=== PATIENT | female | born 1975 | race Caucasian/White ===

== ENCOUNTER 2016-12-13 13:32 | Emergency (ER) | payer OTHER ==
[~2016-12-13] VITALS: Ht 162.6 cm; Wt 62.0 kg
[~2016-12-13 13:32] MED LIST: BENZ100 PO; IBUP-232 PO; NOVONP2 SQ; NOVORP2 SQ; TYLE3 PO; ZITH250T PO
[2016-12-13 14:19] VITALS: BP 122/90; PULSE 73; RESP 16; TEMP 98.7; O2SAT 99
[2016-12-13] MEDS ORDERED: MOTR200T4 PO (15:09)
[2016-12-13] MEDS ORDERED: NOVONP2 SQ (15:09)
[2016-12-13] MEDS ORDERED: CYCL1TAB29 PO (15:27)
[2016-12-13] MEDS ORDERED: NAPR500T PO (15:27)
[2016-12-13] MEDS ORDERED: KETOROLAC TROMETHAMINE 60 MG/2 ML (IM) VIAL IM ONE (15:30)
--- NOTE | 2016-12-13 15:30 | PD ---
HPI Chief Complaint: Injury Time Seen by Provider: 15:27 Travel History International Travel<30 days: No Contact w/Intl Traveler<30days: No Traveled to known affect area: No History of Present Illness HPI 41-year-old female with history of diabetes presents to the emergency department for evaluation of left shoulder pain for 5 days. 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 States that since then she has had some pain in the left shoulder with worsening pain in the left upper back and muscle spasms. States that she has applied ice and Biofreeze with minimal improvement of symptoms. She has not taken any medications so far. Denies any prior injury or trauma to her shoulder. Denies any numbness or tingling, weakness, chest pain or shortness of breath. Denies , last menstrual period 1 week ago. No other complaints. PFSH Past Medical History Diabetes: Yes (type ) Patient Takes Glucophage: No Diminished Hearing: No Neurologic: Yes (HX OF BRAIN TUMORS) Immunizations Current: Yes Tetanus Vaccination: < 5 Years Influenza Vaccination: No ?: Not LMP: 1 week ago : 2 Para: 0 Miscarriage: 2 : 0 Past Surgical History Abdominal Surgery: Yes (EX LAP) Appendectomy: Yes Other Surgery: Yes (EXPLORATORY LAP) Social History Alcohol Use: Yes Tobacco Use: Yes (/ PPD) Substance Use: No Allergies-Medications (Allergen,Severity, Reaction): Coded Allergies: No Known Allergies (Verified , 12/13/16) Reported Meds & Prescriptions Reported Meds & Active Scripts Active Naproxen 500 Mg Tab 500 Mg PO BID 7 Days Flexeril (Cyclobenzaprine HCl) 10 Mg Tab 10 Mg PO TID 5 Days Reported Motrin Ib (Ibuprofen) 200 Mg Tab 800 Mg PO ONCE PRN Novolin N Inj (Insulin Human NPH) 1,000 Unit/10 Ml Vial 15 Units SQ DAILY Review of Systems Except as stated in HPI: all other systems reviewed are Neg Physical Exam Narrative GENERAL: Well-nourished and well-developed pleasant patient in no acute distress who is nontoxic appearing. SKIN: Warm and dry. HEAD: Normocephalic and atraumatic. EYES: No injection, drainage, or hyphema noted. PERRLA. EOMI. ENT: No nasal drainage noted. Oropharynx is clear. NECK: Supple and the trachea is midline. CARDIOVASCULAR: Regular rate and rhythm. RESPIRATORY: Breath sounds are equal bilaterally with no accessory muscle use, wheezing, rhonchi, or crackles. MUSCULOSKELETAL: Decreased range of motion in the left shoulder secondary to pain however patient is able to lift her left arm up to 90. No obvious deformities, swelling, cyanosis, or ecchymosis is present throughout the upper and lower extremities. Patient has full range of motion without any signs of neurovascular compromise. BACK: Tenderness to palpation of left subscapular/thoracic paraspinal muscle region. Nontender without any obvious deformities, bony point tenderness, or crepitus noted throughout the thoracic and lumbar vertebrae. NEUROLOGICAL: Awake, alert, and oriented. Normal speech and gait. Cranial nerves are grossly intact. Data Data Last Documented VS Vital Signs Date Time Temp Pulse Resp B/P Pulse Ox O2 Delivery O2 Flow Rate FiO2 12/13/16 14:19 98.7 73 16 122/90 99 Orders Ketorolac Inj (Toradol Inj) (12/13/16 15:30) [facility] Medical Decision Making Medical Screen Exam Complete: Yes Emergency Medical Condition: Yes Differential Diagnosis Shoulder sprain versus ligamentous injury versus muscle spasm versus muscle strain Narrative Course 41-year-old female presents to the emergency department for evaluation of left shoulder pain and left upper back pain for 5 days. Patient is afebrile, vital signs are stable. No traumatic injury. This happened when the child was pulling on her arm. The patient's left upper extremity is neurovascularly intact. Patient is given Toradol 60 mg IM. She'll be discharged with prescriptions for naproxen and Flexeril. Discussed supportive care. Advised follow-up with her PCP. Patient verbalizes understanding and agreement with treatment plan. Diagnosis Primary Impression: Sprain of left shoulder Qualified Code: S43.402A - Sprain of left shoulder, unspecified shoulder sprain type, initial encounter Additional Impression: Spasm of thoracic back muscle Referrals: Primary Care Physician Patient Instructions: General Instructions, Muscle Spasm (ED), Shoulder Sprain (ED) Additional Instructions: Apply heating pad. Take medications as prescribed with food and a full glass of water. Do not take Flexeril with alcohol or while driving. Follow-up with your Primary Care Physician. Return to the ED for any acute worsening of symptoms. Med/Other Pt SpecificInfo: Prescription(s) given Scripts Naproxen 500 Mg [id number] Mg PO BID 7 Days Ref 0 Prov:Rishi Narayanan MD 12/13/16 Cyclobenzaprine (Flexeril)10 Mg Tab10 Mg PO TID 5 Days Ref 0 Prov:Rishi Narayanan MD 12/13/16 Disposition: 01 DISCHARGE HOME Condition: Stable Saritha Rodriguez Dec 13, 2016 15:30
== END 2016-12-13 15:41 | disposition home or self-care (01) ==
LOC: PHED 13:32 → PHEFT 15:41
DX: S43.402A Unspecified sprain of left shoulder joint, initial encounter (principal); M62.830 Muscle spasm of back; E11.9 Type 2 diabetes mellitus without complications; F17.200 Nicotine dependence, unspecified, uncomplicated; Z79.4 Long term (current) use of insulin; Z86.69 Personal history of other diseases of the nervous system and sense organs; X50.0XXA Overexertion from strenuous movement or load, initial encounter; Y93.F9 Activity, other caregiving
CPT/HCPCS: 96372; 99283; J1885

== ENCOUNTER 2017-08-17 12:21 | Emergency (ER) | payer SELFPAY ==
[~2017-08-17] VITALS: Ht 162.6 cm; Wt 60.0 kg
[~2017-08-17 12:21] MED LIST changes: -BENZ100 PO; +CYCL1TAB29 PO; -IBUP-232 PO; +MOTR200T4 PO; +NAPR500T PO; -NOVORP2 SQ; -TYLE3 PO; -ZITH250T PO
[2017-08-17 12:23] VITALS: BP 124/80; PULSE 101; RESP 20; TEMP 97.9; O2SAT 99
[2017-08-17] MEDS ORDERED: SODIUM CHLOR 0.9% 1000 ML INJ 1,000 ML IV ONE ×3 (12:45→14:30)
[2017-08-17] MEDS ORDERED: SODIUM CHLORIDE 0.9% FLUSH 10 ML FLUSH IVF PRN (12:45)
[2017-08-17 13:24] LABS: AUTOMATED NEUTROPHIL # 5.3 TH/MM3 (1.8-7.7); BASOPHIL # 0.1 TH/MM3 (0-0.2); EOSINOPHIL # 0.1 TH/MM3 (0-0.4); EOSINOPHIL % 1.1 % (0.0-4.0); HEMATOCRIT 43.3 % (35.0-46.0); HEMO FLAGS DIFF FINAL; LYMPH % 19.9 % (9.0-44.0); LYMPHOCYTE # 1.5 TH/MM3 (1.0-4.8); MEAN CELL VOLUME 92.1 FL (80.0-100.0); MEAN CORPUSCULAR HEMOGLOBIN 30.6 PG (27.0-34.0); MEAN CORPUSCULAR HGB CONC 33.2 % (32.0-36.0); MONO % 8.2 % (0.0-8.0); NEUT % 69.8 % (16.0-70.0); PLATELET COUNT 309 TH/MM3 (150-450); RED BLOOD COUNT 4.71 MIL/MM3 (4.00-5.30); RED CELL DISTRIBUTION WIDTH 13.6 % (11.6-17.2); WHITE BLOOD COUNT 7.6 TH/MM3 (4.0-11.0)
[2017-08-17 13:45] LABS: ALKALINE PHOSPHATASE 119 U/L (45-117); ALT (GPT) 33 U/L (10-53); ANION GAP 8 MEQ/L (5-15); AST (GOT) 18 U/L (15-37); BETA-HYDROXYBUTYRATE 0.48 MMOL/L (0.00-0.39); BLOOD UREA NITROGEN 15 MG/DL (7-18); CHLORIDE 102 MEQ/L (98-107); GLOMERULAR FILTRATION RATE 83 ML/MIN (>89); POTASSIUM 4.4 MEQ/L (3.5-5.1); SODIUM (NA) 134 MEQ/L (136-145); TOTAL BILIRUBIN ADULT 0.6 MG/DL (0.2-1.0)
[2017-08-17 14:27] VITALS: BP 122/74; PULSE 53; RESP 16; O2SAT 99
[2017-08-17] MEDS ORDERED: METOCLOPRAMIDE HCL 10 MG/2 ML VIAL IV PUSH ONE (14:30)
--- NOTE | 2017-08-17 14:40 | PD ---
HPI Chief Complaint: Diabetic Time Seen by Provider: 12:39 Travel History International Travel<30 days: No Contact w/Intl Traveler<30days: No Traveled to known affect area: No History of Present Illness HPI Patient is a 42-year-old female who presents to emergency room with complaints of hyperglycemia. Patient reports that she is a type II diabetic, she has been having polydipsia as well as polyuria, reports that she has been feeling dizzy and has been feeling nauseous. Patient reports that she thinks that her blood sugar is high. She does take insulin, reports that she has been lax in checking her blood sugars, reports that she has not been eating well overall. Patient denies any chest pain or shortness of breath. Patient denies any fevers or chills. Patient with no other complaints. PFSH Past Medical History Diabetes: Yes Patient Takes Glucophage: No Diminished Hearing: No Neurologic: Yes (HX OF BRAIN TUMORS) Immunizations Current: Yes ?: Not : 2 Para: 0 Miscarriage: 2 : 0 Past Surgical History Abdominal Surgery: Yes (EX LAP) Appendectomy: Yes Other Surgery: Yes (EXPLORATORY LAP) Social History Alcohol Use: Yes (beer weekly ) Tobacco Use: Yes (01/01 PPD) Substance Use: No Allergies-Medications (Allergen,Severity, Reaction): Coded Allergies: No Known Allergies (Verified , 12/13/16) Reported Meds & Prescriptions Reported Meds & Active Scripts Active Naproxen 500 Mg Tab 500 Mg PO BID 7 Days Reported Motrin Ib (Ibuprofen) 200 Mg Tab 800 Mg PO ONCE PRN Novolin N Inj (Insulin Human NPH) 1,000 Unit/10 Ml Vial 15 Units SQ DAILY Review of Systems General / Constitutional: No: Fever Eyes: No: Visual changes HENT: Positive: Lightheadedness, No: Headaches Cardiovascular: No: Chest Pain or Discomfort Respiratory: No: Shortness of Breath Gastrointestinal: No: Abdominal Pain Genitourinary: No: Dysuria Musculoskeletal: No: Pain Skin: No Rash Neurologic: Positive: Dizziness, No: Weakness Psychiatric: No: Depression Endocrine: Positive: Polyuria, Polydipsia Hematologic/Lymphatic: No: Easy Bruising Physical Exam Narrative GENERAL: NAD SKIN: Focused skin assessment warm/dry. HEAD: Atraumatic. Normocephalic. EYES: Pupils equal and round. No scleral icterus. No injection or drainage. ENT: No nasal bleeding or discharge. Mucous membranes pink and moist. NECK: Trachea midline. No JVD. CARDIOVASCULAR: Regular rate and rhythm. No murmur appreciated. RESPIRATORY: No accessory muscle use. Clear to auscultation. Breath sounds equal bilaterally. GASTROINTESTINAL: Abdomen soft, non-tender, nondistended. Hepatic and splenic margins not palpable. MUSCULOSKELETAL: No obvious deformities. No clubbing. No cyanosis. No edema. NEUROLOGICAL: Awake and alert. No obvious cranial nerve deficits. Motor grossly within normal limits. Normal speech. PSYCHIATRIC: Appropriate mood and affect; insight and judgment normal. Data Data Last Documented VS Vital Signs Date Time Temp Pulse Resp B/P (MAP) Pulse Ox O2 Delivery O2 Flow Rate FiO2 08/17/17 14:27 53 16 122/74 (90) 99 Room Air 08/17/17 12:23 97.9 Orders Orders Complete Blood Count With Diff (08/17/17 12:45) Comprehensive Metabolic Panel (08/17/17 12:45) Beta Hydroxybutyrate (Acetone) (08/17/17 12:45) Urinalysis - C+S If Indicated (08/17/17 12:45) Blood Glucose (08/17/17 12:45) Blood Glucose (08/17/17 13:15) Ecg Monitoring (08/17/17 12:45) Iv Access Insert/Monitor (08/17/17 12:45) Oximetry (08/17/17 12:45) NPO (08/17/17 12:45) Sodium Chlor 0.9% 1000 Ml Inj (Ns 1000 M (08/17/17 12:45) Sodium Chlor 0.9% 1000 Ml Inj (Ns 1000 M (08/17/17 13:15) Sodium Chloride 0.9% Flush (Ns Flush) (08/17/17 12:45) Ed Urine Pregnancytest Poc (08/17/17 12:45) Blood Glucose (08/17/17 12:45) Metoclopramide Inj (Reglan Inj) (08/17/17 14:30) Sodium Chlor 0.9% 1000 Ml Inj (Ns 1000 M (08/17/17 14:30) Insulin Human Regular Inj (Novolin R Inj (08/17/17 14:45) Blood Glucose (08/17/17 14:40) Blood Glucose (08/17/17 15:40) Labs Laboratory Tests Test 08/17/17 13:00 08/17/17 13:48 White Blood Count 7.6 TH/MM3 Red Blood Count 4.71 MIL/MM3 Hemoglobin 14.4 GM/DL Hematocrit 43.3 % Mean Corpuscular Volume 92.1 FL Mean Corpuscular Hemoglobin 30.6 PG Mean Corpuscular Hemoglobin Concent 33.2 % Red Cell Distribution Width 13.6 % Platelet Count 309 TH/MM3 Mean Platelet Volume 7.6 FL Neutrophils (%) (Auto) 69.8 % Lymphocytes (%) (Auto) 19.9 % Monocytes (%) (Auto) 8.2 % Eosinophils (%) (Auto) 1.1 % Basophils (%) (Auto) 1.0 % Neutrophils # (Auto) 5.3 TH/MM3 Lymphocytes # (Auto) 1.5 TH/MM3 Monocytes # (Auto) 0.6 TH/MM3 Eosinophils # (Auto) 0.1 TH/MM3 Basophils # (Auto) 0.1 TH/MM3 CBC Comment DIFF FINAL Differential Comment Blood Urea Nitrogen 15 MG/DL Creatinine 0.76 MG/DL Random Glucose 425 MG/DL Total Protein 6.9 GM/DL Albumin 3.6 GM/DL Calcium Level 8.9 MG/DL Alkaline Phosphatase 119 U/L Aspartate Amino Transf (AST/SGOT) 18 U/L Alanine Aminotransferase (ALT/SGPT) 33 U/L Total Bilirubin 0.6 MG/DL Sodium Level 134 MEQ/L Potassium Level 4.4 MEQ/L Chloride Level 102 MEQ/L Carbon Dioxide Level 24.0 MEQ/L Anion Gap 8 MEQ/L Estimat Glomerular Filtration Rate 83 ML/MIN B-Hydroxybutyrate 0.48 MMOL/L Urine Color LIGHT-YELLOW Urine Turbidity CLEAR Urine pH 6.0 Urine Specific [place] 1.029 Urine Protein NEG mg/dL Urine Glucose (UA) 1000 mg/dL Urine Ketones 10 mg/dL Urine Occult Blood MOD Urine Nitrite NEG Urine Bilirubin NEG Urine Urobilinogen LESS THAN 2.0 MG/DL Urine Leukocyte Esterase NEG Urine RBC /hpf Urine WBC LESS THAN 1 /hpf Urine Squamous Epithelial Cells 2 /hpf Urine Bacteria RARE /hpf Microscopic Urinalysis Comment CULT NOT INDICATED MDM Medical Decision Making Medical Screen Exam Complete: Yes Emergency Medical Condition: Yes Medical Record Reviewed: Yes Interpretation(s) Vital Signs Date Time Temp Pulse Resp B/P (MAP) Pulse Ox O2 Delivery O2 Flow Rate FiO2 10/18/17 14:27 53 16 122/74 (90) 99 Room Air 08/17/17 12:43 62 16 08/17/17 12:23 97.9 101 20 124/80 (95) 99 Room Air Laboratory Tests Test 08/17/17 13:00 08/17/17 13:48 White Blood Count 7.6 TH/MM3 (4.0-11.0) Red Blood Count 4.71 MIL/MM3 (4.00-5.30) Hemoglobin 14.4 GM/DL (11.6-15.3) Hematocrit 43.3 % (35.0-46.0) Mean Corpuscular Volume 92.1 FL (80.0-100.0) Mean Corpuscular Hemoglobin 30.6 PG (27.0-34.0) Mean Corpuscular Hemoglobin Concent 33.2 % (32.0-36.0) Red Cell Distribution Width 13.6 % (11.6-17.2) Platelet Count 309 TH/MM3 (150-450) Mean Platelet Volume 7.6 FL (7.0-11.0) Neutrophils (%) (Auto) 69.8 % (16.0-70.0) Lymphocytes (%) (Auto) 19.9 % (9.0-44.0) Monocytes (%) (Auto) 8.2 % (0.0-8.0) Eosinophils (%) (Auto) 1.1 % (0.0-4.0) Basophils (%) (Auto) 1.0 % (0.0-2.0) Neutrophils # (Auto) 5.3 TH/MM3 (1.8-7.7) Lymphocytes # (Auto) 1.5 TH/MM3 (1.0-4.8) Monocytes # (Auto) 0.6 TH/MM3 (0-0.9) Eosinophils # (Auto) 0.1 TH/MM3 (0-0.4) Basophils # (Auto) 0.1 TH/MM3 (0-0.2) CBC Comment DIFF FINAL Differential Comment Blood Urea Nitrogen 15 MG/DL (7-18) Creatinine 0.76 MG/DL (0.50-1.00) Random Glucose 425 MG/DL (74-106) Total Protein 6.9 GM/DL (6.4-8.2) Albumin 3.6 GM/DL (3.4-5.0) Calcium Level 8.9 MG/DL (8.5-10.1) Alkaline Phosphatase 119 U/L (45-117) Aspartate Amino Transf (AST/SGOT) 18 U/L (15-37) Alanine Aminotransferase (ALT/SGPT) 33 U/L (10-53) Total Bilirubin 0.6 MG/DL (0.2-1.0) Sodium Level 134 MEQ/L (136-145) Potassium Level 4.4 MEQ/L (3.5-5.1) Chloride Level 102 MEQ/L (98-107) Carbon Dioxide Level 24.0 MEQ/L (21.0-32.0) Anion Gap 8 MEQ/L (5-15) Estimat Glomerular Filtration Rate 83 ML/MIN (>89) B-Hydroxybutyrate 0.48 MMOL/L (0.00-0.39) Differential Diagnosis Differential includes HHNK, hyperglycemia, electrolyte abnormality Narrative Course 42-year-old female who presents to emergency room complaints of hyperglycemia. She is a well known diabetic currently on insulin. Reports that she has been compliant with her medications but has had a poor diet and has not been checking her blood sugar. Blood sugar in the ER is 412. Lab work ordered, 2 liters IVF ordered. Plan to monitor patient CBC & BMP Diagram 08/17/17 13:00 Total Protein 6.9, Albumin 3.6, Calcium Level 8.9, Alkaline Phosphatase 119 H, Aspartate Amino Transf (AST/SGOT) 18, Alanine Aminotransferase (ALT/SGPT) 33, Total Bilirubin 0.6 BS now 207 after IVF, Insulin held, discussed need for patient to monitor her blood sugars, discussed need to also monitor her diet. Patient will be discharged to home, she'll follow up with her primary care doctor and return to emergency room as needed. labs and studies reviewed with patient she will keep a log of her bs's and bring it to her pcp's office Diagnosis Primary Impression: Hyperglycemia Patient Instructions: General Instructions Additional Instructions: Please take all medications as prescribed Please keep a log of your blood sugars and bring it to your doctor's office Return to ER as needed or if symptoms worsen or progress Disposition: 01 DISCHARGE HOME Condition: Good Silvina Ruiz DO Aug 17, 2017 14:40
[2017-08-17 14:41] LABS: BACTERIA, URINE RARE /hpf; BLOOD, URINE MOD (NEG); COMMENT (UR) CULT NOT INDICATED; CULTURE IF INDICATED CULT NOT INDICATED; GLUCOSE,URINE 1000 mg/dL (NEG); KETONE, URINE 10 mg/dL (NEG); NITRITE,URINE NEG (NEG); SQUAMOUS EPITHELIAL CELL URINE 2 /hpf (0-5); URINE COLOR LIGHT-YELLOW (YELLW/STRAW)
[2017-08-17] MEDS ORDERED: INSULIN HUMAN REGULAR 1,000 UNITS/10 ML VIAL SQ ONE (14:45)
== END 2017-08-17 16:06 | disposition home or self-care (01) ==
LOC: NEPC 12:21
DX: E11.65 Type 2 diabetes mellitus with hyperglycemia (principal); Z79.4 Long term (current) use of insulin; F17.210 Nicotine dependence, cigarettes, uncomplicated
CPT/HCPCS: 80053; 81001; 82010; 84703; 85025; 96361; 96374; 99284; J2765; J7030

== ENCOUNTER 2017-12-03 10:52 | Inpatient (IN) | payer OTHER ==
[~2017-12-03] VITALS: Ht 162.6 cm; Wt 54.3 kg
[2017-12-03] VITALS (14 sets, daily range): BP systolic 100–139; BP diastolic 60–79; PULSE 70–89; RESP 14–19; TEMP 97.4–98; O2SAT 98–100
[~2017-12-03 10:52] MED LIST changes: -CYCL1TAB29 PO; -NAPR500T PO; +NAPR500T2 PO
[2017-12-03] MEDS ORDERED: tumeric PO (11:16)
[2017-12-03] MEDS ORDERED: CINN500C2 PO (11:16)
[2017-12-03] MEDS ORDERED: SODIUM CHLOR 0.9% 1000 ML INJ 1,000 ML IV ONE ×2 (11:25→11:55)
[2017-12-03] MEDS ORDERED: ONDANSETRON HCL 4 MG/2 ML VIAL IVP ONE (11:30)
--- NOTE | 2017-12-03 11:32 | PD ---
HPI Chief Complaint: Diabetic Time Seen by Provider: 11:20 Travel History International Travel<30 days: No Contact w/Intl Traveler<30days: No Traveled to known affect area: No History of Present Illness HPI The patient was seen and examined in the presence of the nurse. This patient complains of diffuse body aches and nausea. Duration 2 days. Symptoms moderately severe. She is insulin-dependent diabetic. Her Accu-Chek was 270 this morning. She denies fever or abdominal pain. She does have lightheadedness and dizziness. No diarrhea. No alleviating factors. no Exacerbating factors. She took 15 units of novolin N this morning PFS Past Medical History Diabetes: Yes (type 2) Patient Takes Glucophage: No Diminished Hearing: No Neurologic: Yes (HX OF BRAIN TUMORS) Immunizations Current: Yes Tetanus Vaccination: > 5 Years Influenza Vaccination: No ?: Not LMP: 11/14/17 : 2 Para: 0 Miscarriage: 2 : 0 Past Surgical History Abdominal Surgery: Yes (EX LAP) Appendectomy: Yes Other Surgery: Yes (EXPLORATORY LAP) Social History Alcohol Use: No (none 30 days) Tobacco Use: Yes (2 cigs) Substance Use: No Allergies-Medications (Allergen,Severity, Reaction): Coded Allergies: No Known Allergies (Verified Adverse Reaction, Unknown, 12/03/17) Reported Meds & Prescriptions Reported Meds & Active Scripts Active Reported Eql Cinnamon (Cinnamon) 500 Mg Cap 1,000 Mg PO DAILY [tumeric] 1 Tab PO DAILY Novolin N Inj (Insulin Human NPH) 1,000 Unit/10 Ml Vial 15 Units SQ DAILY Review of Systems General / Constitutional: No: Fever Eyes: No: Visual changes HENT: No: Headaches Cardiovascular: No: Chest Pain or Discomfort Respiratory: No: Shortness of Breath Gastrointestinal: Positive: Nausea, Loss of Appetite, No: Abdominal Pain Genitourinary: No: Dysuria Musculoskeletal: Positive: Myalgias, No: Pain Skin: No Rash Neurologic: No: Weakness Psychiatric: No: Depression Endocrine: No: Polydipsia Hematologic/Lymphatic: No: Easy Bruising Physical Exam Narrative GENERAL: Well-nourished, well-developed patient in no apparent distress. Patient has ketone breath SKIN: Focused skin assessment reveals no rash and nodules. Skin is Warm and dry. HEAD: Atraumatic. Normocephalic. EYES: Pupils equal and round. No scleral icterus. No injection or drainage. ENT: No nasal bleeding or discharge. Mucous membranes pink and moist. NECK: Trachea midline. No JVD. CARDIOVASCULAR: Regular rate and rhythm. No murmur appreciated. RESPIRATORY: No accessory muscle use. Clear to auscultation. Breath sounds equal bilaterally. GASTROINTESTINAL: Abdomen soft, non-tender, nondistended. Hepatic and splenic margins not palpable. MUSCULOSKELETAL: No obvious deformities. No clubbing. No cyanosis. No edema. NEUROLOGICAL: Awake and alert. No obvious cranial nerve deficits. Motor grossly within normal limits. Normal speech. PSYCHIATRIC: Appropriate mood and affect; insight and judgment normal. Data Data Last Documented VS Vital Signs Date Time Temp Pulse Resp B/P (MAP) Pulse Ox O2 Delivery O2 Flow Rate FiO2 12/03/17 12:17 80 18 123/79 (94) 100 Room Air 12/03/17 10:56 97.4 Orders Orders Urinalysis - C+S If Indicated (12/03/17 11:20) Ed Urine Pregnancytest Poc (12/03/17 11:20) Complete Blood Count With Diff (12/03/17 11:25) Comprehensive Metabolic Panel (12/03/17 11:25) Beta Hydroxybutyrate (Acetone) (12/03/17 11:25) Blood Gas Venous (Vbg) (12/03/17 11:25) Ecg Monitoring (12/03/17 11:25) Iv Access Insert/Monitor (12/03/17 11:25) Oximetry (12/03/17 11:25) NPO (12/03/17 11:25) Sodium Chlor 0.9% 1000 Ml Inj (Ns 1000 M (12/03/17 11:25) Sodium Chlor 0.9% 1000 Ml Inj (Ns 1000 M (12/03/17 11:55) Sodium Chloride 0.9% Flush (Ns Flush) (12/03/17 11:30) Ondansetron Inj (Zofran Inj) (12/03/17 11:30) Sodium Chlor 0.9% 1000 Ml Inj (Ns 1000 M (12/03/17 12:35) Dext 5%-Nacl 0.9% 1000 Ml Inj (D5w-Ns 10 (12/03/17 12:35) Insulin Regular (Iv Infusion) (Novolin R (12/03/17 12:45) Potassium Chlor 40 Meq Premix (Kcl 40 Me (12/03/17 12:45) Potassium Chlor 40 Meq Premix (Kcl 40 Me (12/03/17 12:45) Potassium Chlor 20 Meq Premix (Kcl 20 Me (12/03/17 12:45) Potassium Chlor 20 Meq Premix (Kcl 20 Me (12/03/17 12:45) Potassium Chlor 20 Meq Premix (Kcl 20 Me (12/03/17 12:45) Potassium Chlor 20 Meq Premix (Kcl 20 Me (12/03/17 12:45) Potassium Chlor 20 Meq Premix (Kcl 20 Me (12/03/17 12:45) Potassium Chlor 20 Meq Premix (Kcl 20 Me (12/03/17 12:45) Sodium Bicarbonate 8.4% Inj (Sodium Bica (12/03/17 12:45) Sodium Bicarbonate 8.4% Inj (Sodium Bica (12/03/17 12:45) Sodium Phosphate Inj (Sodium Phosphate I (12/03/17 12:45) Admit Order (Ed Use Only) (12/03/17 12:37) Admit Order (Ed Use Only) (12/03/17 12:41) Labs Laboratory Tests Test 12/03/17 11:30 12/03/17 11:40 White Blood Count 5.6 TH/MM3 Red Blood Count 5.19 MIL/MM3 Hemoglobin 15.1 GM/DL Hematocrit 46.3 % Mean Corpuscular Volume 89.2 FL Mean Corpuscular Hemoglobin 29.1 PG Mean Corpuscular Hemoglobin Concent 32.7 % Red Cell Distribution Width 12.1 % Platelet Count 325 TH/MM3 Mean Platelet Volume 7.2 FL Neutrophils (%) (Auto) 67.0 % Lymphocytes (%) (Auto) 21.0 % Monocytes (%) (Auto) 10.4 % Eosinophils (%) (Auto) 0.6 % Basophils (%) (Auto) 1.0 % Neutrophils # (Auto) 3.7 TH/MM3 Lymphocytes # (Auto) 1.2 TH/MM3 Monocytes # (Auto) 0.6 TH/MM3 Eosinophils # (Auto) 0.0 TH/MM3 Basophils # (Auto) 0.1 TH/MM3 CBC Comment DIFF FINAL Differential Comment Urine Collection Type CLEAN CATCH Urine Color YELLOW Urine Turbidity SLIGHT Urine pH 5.5 Urine Specific [place] 1.032 Urine Protein 100 mg/dL Urine Glucose (UA) 500 mg/dL Urine Ketones 80 OR GREATER mg/dL Urine Occult Blood MOD Urine Nitrite NEG Urine Bilirubin NEG Urine Leukocyte Esterase NEG Urine RBC 4-9 /hpf Urine WBC 0-2 /hpf Urine Squamous Epithelial Cells > 8 /hpf Urine Amorphous Sediment MOD Urine Hyaline Casts 3-5 /lpf Urine Fine Granular Casts 6-9 /lpf Urine Coarse Granular Casts 3-5 /lpf Microscopic Urinalysis Comment CULT NOT INDICATED Urine Collection Time 1130 Blood Urea Nitrogen 10 MG/DL Creatinine 0.75 MG/DL Random Glucose 267 MG/DL Total Protein 8.1 GM/DL Albumin 4.2 GM/DL Calcium Level 8.0 MG/DL Alkaline Phosphatase 91 U/L Aspartate Amino Transf (AST/SGOT) 18 U/L Alanine Aminotransferase (ALT/SGPT) 32 U/L Total Bilirubin 0.9 MG/DL Sodium Level 132 MEQ/L Potassium Level 4.0 MEQ/L Chloride Level 106 MEQ/L Carbon Dioxide Level 10.1 MEQ/L Anion Gap 16 MEQ/L Estimat Glomerular Filtration Rate 84 ML/MIN B-Hydroxybutyrate 7.39 MMOL/L Blood Gas Puncture Site VENOUS Blood Gas Patient Temperature 98.6 Venous Blood pH 7.15 Venous Blood Partial Pressure CO2 21 mmHg Venous Blood Partial Pressure O2 68 mmHg Venous Blood HCO3 7 mmol/L Venous Blood Oxygen Saturation 90 % Venous Blood Oxygen Content 19.8 Vol % Venous Blood Base Excess -20.4 mmol/L Oxygen Delivery Device RA Blood Gas Inspired Oxygen 21 % MDM Medical Decision Making Medical Screen Exam Complete: Yes Emergency Medical Condition: Yes Medical Record Reviewed: Yes Differential Diagnosis DKA, hyperglycemia, ketosis Narrative Course I have reviewed the patient's electronic medical record. IV placed I gave her 2 L normal saline IV bolus I gave her IV Zofran CBC is normal BMP shows bicarbonate of 10 LFTs are normal Beta hydroxybutyrate is elevated at 7 VBG shows pH of 7.15 UA shows sugar and ketones but no sign of infection Urine is negative This patient is critically ill with DKA I reviewed with the [facility] healthcare hospitalist for admission I started her on insulin drip and will basically started D5 normal saline at the same time Her sugar is low for DKA but insulin drip is required Critical Care Narrative Aggregate critical care time was 34 minutes. Time to perform other separately billable procedures was not included in the critical care time. My time did not include minutes spent treating any other patients simultaneously or on activities that did not directly contribute to the patient's treatment. The services I provided to this patient were to treat and/or prevent clinically significant deterioration that could result in: Cardiac arrhythmia, cardiopulmonary arrest, metabolic instability I provided critical care services requiring my management, as noted below: Chart data review, documentation time, medication orders and management, vital sign assessments/reviewing monitor data, ordering and reviewing lab tests, ordering and interpreting/reviewing x-rays and diagnostic studies, care of the patient and discussion of the patient with the admitting physicians. Diagnosis Primary Impression: DKA, type 1 Qualified Codes: E10.10 - Type 1 diabetes mellitus with ketoacidosis without coma Admitting Information Admitting Physician Requests: Jay Verdin MD Dec 03, 2017 11:32
[2017-12-03 11:41] LABS: BILIRUBIN, URINE NEG (NEG); BLOOD, URINE MOD (NEG); GLUCOSE,URINE 500 mg/dL (NEG); KETONE, URINE 80 OR GREATER mg/dL (NEG); NITRITE,URINE NEG (NEG); PH, URINE 5.5 (5.0-8.5); URINE LEUKOCYTE ESTERASE NEG (NEG)
[2017-12-03 11:46] LABS: AUTOMATED NEUTROPHIL # 3.7 TH/MM3 (1.8-7.7); BASOPHIL # 0.1 TH/MM3 (0-0.2); EOSINOPHIL % 0.6 % (0.0-4.0); HEMATOCRIT 46.3 % (35.0-46.0); HEMOGLOBIN 15.1 GM/DL (11.6-15.3); LYMPHOCYTE # 1.2 TH/MM3 (1.0-4.8); MEAN CELL VOLUME 89.2 FL (80.0-100.0); MEAN CORPUSCULAR HEMOGLOBIN 29.1 PG (27.0-34.0); MEAN CORPUSCULAR HGB CONC 32.7 % (32.0-36.0); MEAN PLATELET VOLUME 7.2 FL (7.0-11.0); MONO % 10.4 % (0.0-8.0); MONOCYTE # 0.6 TH/MM3 (0-0.9); PLATELET COUNT 325 TH/MM3 (150-450); RED BLOOD COUNT 5.19 MIL/MM3 (4.00-5.30); RED CELL DISTRIBUTION WIDTH 12.1 % (11.6-17.2); WHITE BLOOD COUNT 5.6 TH/MM3 (4.0-11.0)
[2017-12-03 11:55] LABS: CHLORIDE 106 MEQ/L (98-107); SODIUM (NA) 132 MEQ/L (136-145)
[2017-12-03 11:58] LABS: ALBUMIN 4.2 GM/DL (3.4-5.0); BICARBONATE 10.1 MEQ/L (21.0-32.0); BLOOD UREA NITROGEN 10 MG/DL (7-18); GLUCOSE,RANDOM 267 MG/DL (74-106)
[2017-12-03 12:01] LABS: ALT (GPT) 32 U/L (10-53); AST (GOT) 18 U/L (15-37); CREATININE 0.75 MG/DL (0.50-1.00); GLOMERULAR FILTRATION RATE 84 ML/MIN (>89)
[2017-12-03 12:02] LABS: URINE COLOR YELLOW (YELLW/STRAW); WBC, URINE 0-2 /hpf (0-5)
[2017-12-03 12:03] LABS: AMORPHOUS SEDIMENT, URINE MOD; SQUAMOUS EPITHELIAL CELL URINE > 8 /hpf (0-5); TOTAL BILIRUBIN ADULT 0.9 MG/DL (0.2-1.0); TOTAL PROTEIN 8.1 GM/DL (6.4-8.2)
[2017-12-03 12:04] LABS: ALKALINE PHOSPHATASE 91 U/L (45-117)
[2017-12-03] MEDS: SODIUM CHLOR 0.9% 1000 ML INJ 1,000 ML IV SCH ×2 (12:35→16:35)
[2017-12-03] MEDS ORDERED: SODIUM BICARBONATE 8.4% SOLN 50 MEQ/50 ML VIAL IV PUSH PRN ×2 (12:45)
[2017-12-03] MEDS ORDERED: SODIUM PHOSPHATE INJ 15 MMOL in SODIUM CHLORIDE 0.9% INJ 100 ML IV PRN ×2 (12:45→14:30)
[2017-12-03] MEDS ORDERED: POTASSIUM CHLOR 20 MEQ PREMIX 100 ML IV PRN ×5 (12:45)
[2017-12-03] MEDS ORDERED: POTASSIUM CHLOR 40 MEQ PREMIX 100 ML IV PRN ×2 (12:45)
[2017-12-03] MEDS: INSULIN REGULAR (IV INFUSION) 100 UNITS in SODIUM CHLORIDE 0.9% INJ 99 ML IV PRN ×8 (13:16→18:32)
[2017-12-03] MEDS: DEXT 5%-NACL 0.9% 1000 ML INJ 1,000 ML IV SCH ×2 (13:17→15:50)
[2017-12-03] MEDS: POTASSIUM CHLOR 20 MEQ PREMIX 100 ML IV PRN ×4 (13:22→21:46)
[2017-12-03] MEDS ORDERED: DEXT 5%-NACL 0.9% 1000 ML INJ 1,000 ML IV SCH (14:38)
[2017-12-03] MEDS ORDERED: MISCELLANEOUS NURSING INFORMATION XX SCH (14:45)
[2017-12-03] MEDS ORDERED: ACETAMINOPHEN 325 MG TAB PO PRN (15:30)
[2017-12-03] MEDS ORDERED: ONDANSETRON HCL 4 MG/2 ML VIAL IV PUSH PRN (15:30)
[2017-12-03] MEDS ORDERED: NALOXONE HCL 0.4 MG/ML AMP IV PUSH PRN (15:30)
--- NOTE | 2017-12-03 16:59 | MH ---
cc: TATIANA PEARSON M.D. DATE OF ADMISSION 12/03/2017 ADMISSION DIAGNOSIS Diabetic ketoacidosis HISTORY OF PRESENT ILLNESS Ms. Shelby is a pleasant 42-year-old female who has a diagnosis of diabetes for the last three years. She states that during this time period she has actually not been under the care of a physician and has actually been regulating her diabetes with the insulin dose she was given when she was first diagnosed. She actually just got her insurance card yesterday but has not been able to set up with a primary care physician. She states that she came to the emergency room because of increased body and muscle aches that she has had worsening over the last [id number] days. She said she has had decreased appetite, but she has actually made herself eat because she is on the insulin. She denies any actual abdominal pain, but she does say that she has had increased heartburn and has been taking Tums. No change in her bowel habits. She has had increased urination. As stated, she does state that she has lost approximately 50 pounds in the last six months. She said there was a period there where she was checking her sugars and they are running in the 200s, however, there was a period where she actually did not have the lancets and was not checking her sugars and was not sure what they were. At the time of diagnosis of her diabetes, her hemoglobin A1c was around 11, I believe 11.5. She denies any fevers, chills, cough, sore throat, shortness of breath. She has been a little bit lightheaded today when she came to the emergency room. As stated, no abdominal pain or change in her bowel habits, no burning on urination. She does state she has had increased urination over the last couple of days as well. She just basically has the fatigue and muscle pain. PAST MEDICAL HISTORY Unremarkable, just the recently diagnosed diabetes. PAST SURGICAL HISTORY 1. Appendectomy, 2. Knee surgery 3. Laparoscopy for what sounds like might have been pelvic pain. ALLERGIES She denies been allergic to anything. MEDICATIONS 1. She has been taking prior to coming to the hospital was the Humulin N 15 units daily. She states that at one point she was taking 15 units twice a day, but she cut back because her sugars were dropping to the 40s. 2. Cinnamon capsules 3. Turmeric HABITS She has been smoking. she smokes two and a half packs of cigarettes a day. However, she states that she has cut down to just two cigarettes a day. Apparently, she was in the habit of drinking four beers day and she became concerned about her beer consumption and has actually stopped drinking for the left 26 days. She said she is currently going to as well. SOCIAL HISTORY She has no family locally, but she has what she calls her jewish family who are very supportive and close to her. She has worked at multiple jobs and states that currently she is working at the [employer] doing almost anything that requires to be done at this point. FAMILY HISTORY She does state that there is a strong family history of diabetes on her father's side. Otherwise, family history is unremarkable. REVIEW OF SYSTEMS See HPI. PHYSICAL EXAMINATION VITAL SIGNS: Temperature is 97.4, pulse 85, respirations 20, blood pressure is 105/74, pulse ox on room air is 100. GENERAL: This is a very pleasant woman lying in the ICU bed. She does not appear to be in any acute distress. She is alert and conversant. HEENT: She is normocephalic, atraumatic. EOM intact. She is wearing her glasses. She has a dry oral mucosa. She does have some cavities. No evidence of infection in her gums. NECK: Supple. LUNGS: Clear to auscultation bilaterally. No rhonchi, rales or wheezes. HEARAT: Regular. She is not tachycardiac. She has no murmurs. ABDOMEN: Good bowel sounds in all four quadrants. She does have some mid epigastric tenderness, no rebound or guarding. EXTREMITIES: No clubbing, cyanosis or edema. She moves them well. She does have a tattoo on her back. LABORATORY DATA Lab work that was done when she came into the emergency room showed a sodium of 132, potassium of four, BUN of 10, creatinine 0.7. Her carbon dioxide was 10.1 with a anion gap of 16, random glucose was 267, calcium was eight. LFTs were normal as well as total protein and albumin. White count was 5.6, hemoglobin was 15.1, hematocrit was 46.3, platelet count was 325. UA that was done showed 100 of protein, 500 of glucose, 80 or greater of ketones. There was moderate amount of occult blood. Beta-hydroxybutyrate was 3.9. Venous pH was 7.15 with a pCO2 of 21, a pO2 of 68 and a bicarb of seven. ASSESSMENT/PLAN 1. A 42-year-old diabetic female who presents to the emergency room with general malaise and myalgia found to be in diabetic ketoacidosis. At his time, she has been admitted and started on the DKA protocol. We will monitor her sugars and her electrolytes closely. Check a hemoglobin A1c to see what her sugars have been running. It sounds like after discussion with her, she has tried to educate herself on diabetes and diabetic diet. She will need to be set up with a primary care physician as an outpatient to continue to help her manage her diabetes and other health issues. 2. For her heartburn, I am going to go ahead and put her on some Protonix and see how she does as we gradually progress her to eating. 3. For tobacco use, she is already weaning herself off of her cigarettes. We will continue to encourage her to do that and on smoking cessation. Further recommendations as the case develops. Tatiana Pearson MD CSAkosua/ /3:32 PM /4:29 PM
[2017-12-03] MEDS: PANTOPRAZOLE SODIUM 40 MG VIAL IV PUSH SCH (17:34)
[2017-12-03 20:11] LABS: ALBUMIN 3.5 GM/DL (3.4-5.0); ALT (GPT) 26 U/L (10-53); AST (GOT) 15 U/L (15-37); BICARBONATE 15.9 MEQ/L (21.0-32.0); BLOOD UREA NITROGEN 5 MG/DL (7-18); CALCIUM 7.7 MG/DL (8.5-10.1); CHLORIDE 114 MEQ/L (98-107); CREATININE 0.58 MG/DL (0.50-1.00); GLOMERULAR FILTRATION RATE 113 ML/MIN (>89); GLUCOSE,RANDOM 124 MG/DL (74-106); MAGNESIUM 1.8 MG/DL (1.5-2.5); PHOSPHORUS 0.5 MG/DL (2.5-4.9); SODIUM (NA) 137 MEQ/L (136-145); TOTAL BILIRUBIN ADULT 1.2 MG/DL (0.2-1.0); TOTAL PROTEIN 6.7 GM/DL (6.4-8.2)
[2017-12-03 20:14] LABS: ALKALINE PHOSPHATASE 65 U/L (45-117)
[2017-12-03] MEDS: MEDIUM DOSE INSULIN NOVOLOG SUPPLEMENTAL SCALE SQ SCH (21:00)
[2017-12-03] MEDS ORDERED: INSULIN REGULAR (IV INFUSION) 100 UNITS in SODIUM CHLORIDE 0.9% INJ 99 ML IV PRN (21:15)
[2017-12-03] MEDS ORDERED: INSULIN DETEMIR 100 UNITS/ML VIAL SQ SCH (21:15)
[2017-12-03] MEDS ORDERED: DEXTROSE 50% IN WATER 50 ML VIAL(D50) IV PUSH PRN (21:15)
[2017-12-03] MEDS ORDERED: GLUCAGON 1 MG/ML VIAL OTHER PRN (21:15)
[2017-12-03] MEDS ORDERED: SODIUM CHLOR 0.45% 1000 ML INJ 1,000 ML IV SCH (21:30)
[2017-12-04] VITALS (16 sets, daily range): BP systolic 96–121; BP diastolic 57–86; PULSE 62–82; RESP 13–25; TEMP 97.2–98.6; O2SAT 95–100
[2017-12-04 02:05] LABS: CALCIUM 7.9 MG/DL (8.5-10.1)
[2017-12-04 02:06] LABS: BICARBONATE 17.1 MEQ/L (21.0-32.0); MAGNESIUM 1.9 MG/DL (1.5-2.5)
[2017-12-04 02:09] LABS: CREATININE 0.33 MG/DL (0.50-1.00)
[2017-12-04 02:30] LABS: PHOSPHORUS 1.9 MG/DL (2.5-4.9)
[2017-12-04] MEDS: POTASSIUM CHLOR 20 MEQ PREMIX 100 ML IV PRN (02:47)
[2017-12-04] MEDS ORDERED: MEDIUM DOSE INSULIN NOVOLOG SUPPLEMENTAL SCALE SQ SCH (03:00)
[2017-12-04] MEDS ORDERED: POTASSIUM CHLORIDE 20 MEQ CONTROLLED RELEASE TAB PO SCH (04:45)
[2017-12-04 07:51] LABS: CALCIUM 7.9 MG/DL (8.5-10.1)
[2017-12-04 07:52] LABS: BICARBONATE 19.5 MEQ/L (21.0-32.0); MAGNESIUM 2.1 MG/DL (1.5-2.5)
[2017-12-04 07:55] LABS: CREATININE 0.37 MG/DL (0.50-1.00)
[2017-12-04 07:56] LABS: PHOSPHORUS 1.4 MG/DL (2.5-4.9)
[2017-12-04] MEDS: MEDIUM DOSE INSULIN NOVOLOG SUPPLEMENTAL SCALE SQ SCH ×4 (07:59→21:26)
[2017-12-04] MEDS ORDERED: PNEUMOCOCCAL POLYVALENT INJ 25 MCG/0.5 ML SYR IM ONE (10:00)
[2017-12-04] MEDS: SODIUM CHLORIDE 0.9% FLUSH 10 ML FLUSH IVF PRN ×2 (10:56→21:26)
[2017-12-04 11:55] LABS: HEMOGLOBIN A1C 11.8 % (4.3-6.0)
--- NOTE | 2017-12-04 14:05 | HHI.PR ---
Subjective Remarks feeling better today, good appetite, no heartburn, some spasms rt leg Objective Vitals Vital Signs Date Time Temp Pulse Resp B/P (MAP) Pulse Ox O2 Delivery O2 Flow Rate FiO2 12/04/17 12:00 72 12/04/17 12:00 98.2 72 15 112/71 (85) 12/04/17 11:00 78 18 102/67 (79) 12/04/17 10:00 78 12/04/17 10:00 78 16 115/71 (86) 12/04/17 09:00 68 15 106/77 (87) 12/04/17 08:00 98.6 72 25 108/72 (84) 96 12/04/17 08:00 70 12/04/17 07:00 66 14 110/71 (84) 12/04/17 06:00 62 12/04/17 04:00 72 12/04/17 03:00 68 15 96/64 (75) 99 12/04/17 02:00 66 13 104/75 (85) 97 12/04/17 02:00 66 12/04/17 01:00 66 13 104/69 (81) 100 12/04/17 00:00 64 12/04/17 00:00 98.3 64 14 97/61 (73) 100 12/03/17 23:00 76 15 102/69 (80) 98 12/03/17 22:00 74 12/03/17 22:00 74 18 100/60 (73) 99 12/03/17 21:00 74 14 103/63 (76) 100 12/03/17 20:00 72 16 104/70 (81) 100 12/03/17 20:00 73 12/03/17 19:00 98.0 73 16 107/66 (80) 99 12/03/17 18:35 70 19 113/71 (85) 99 12/03/17 16:00 77 12/03/17 15:47 73 114/74 (87) 12/03/17 14:46 85 20 105/74 (84) 100 12/03/17 14:22 85 18 105/74 (84) 100 Room Air Result Diagram: 12/03/17 1130 12/04/17 0719 Other Results Laboratory Tests Test 12/03/17 11:30 12/03/17 11:40 12/03/17 19:40 12/04/17 01:48 Hematocrit 46.3 % (35.0-46.0) Monocytes (%) (Auto) 10.4 % (0.0-8.0) Urine Protein 100 mg/dL (NEG-TRACE) Urine Glucose (UA) 500 mg/dL (NEG) Urine Ketones 80 OR GREATER mg/dL (NEG) Urine Occult Blood MOD (NEG) Urine RBC 4-9 /hpf (0-3) Urine Squamous Epithelial Cells > 8 /hpf (0-5) Urine Hyaline Casts 3-5 /lpf (RARE) Random Glucose 267 MG/DL (74-106) 124 MG/DL (74-106) Calcium Level 8.0 MG/DL (8.5-10.1) 7.7 MG/DL (8.5-10.1) 7.9 MG/DL (8.5-10.1) Sodium Level 132 MEQ/L (136-145) Carbon Dioxide Level 10.1 MEQ/L (21.0-32.0) 15.9 MEQ/L (21.0-32.0) 17.1 MEQ/L (21.0-32.0) Anion Gap 16 MEQ/L (5-15) Estimat Glomerular Filtration Rate 84 ML/MIN (>89) B-Hydroxybutyrate 7.39 MMOL/L (0.00-0.39) 0.56 MMOL/L (0.00-0.39) Venous Blood pH 7.15 (7.360-7.400) Venous Blood Partial Pressure CO2 21 mmHg (44-48) Venous Blood Partial Pressure O2 68 mmHg (35-40) Venous Blood HCO3 7 mmol/L (22-26) Venous Blood Oxygen Saturation 90 % (70-76) Venous Blood Oxygen Content 19.8 Vol % (9.0-17.0) Venous Blood Base Excess -20.4 mmol/L (-2-2) Blood Urea Nitrogen 5 MG/DL (7-18) 5 MG/DL (7-18) Phosphorus Level 0.5 MG/DL (2.5-4.9) 1.9 MG/DL (2.5-4.9) Total Bilirubin 1.2 MG/DL (0.2-1.0) Potassium Level 3.3 MEQ/L (3.5-5.1) 3.4 MEQ/L (3.5-5.1) Chloride Level 114 MEQ/L (98-107) 114 MEQ/L (98-107) Creatinine 0.33 MG/DL (0.50-1.00) Test 12/04/17 07:19 Creatinine 0.37 MG/DL (0.50-1.00) Random Glucose 169 MG/DL (74-106) Calcium Level 7.9 MG/DL (8.5-10.1) Phosphorus Level 1.4 MG/DL (2.5-4.9) Chloride Level 111 MEQ/L (98-107) Carbon Dioxide Level 19.5 MEQ/L (21.0-32.0) Objective Remarks sitting up in bed nad lungs cta heart rrr not tachy good bowel sound nontender no c/c/e A/P Problem List: (1) DKA, type 2 ICD Codes: E11.10 - Type 2 diabetes mellitus with ketoacidosis without coma Status: Acute Plan: sugars, electrolytes all improving, off drip on levemir, tolerating food will monitor tonight and likley discharge in am on levemir, 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
[2017-12-04] MEDS ORDERED: CALCIUM CARBONATE 500 MG CHEWABLE TAB CHEW ONE (14:15)
[2017-12-04] MEDS: PANTOPRAZOLE SODIUM 40 MG VIAL IV PUSH SCH (15:04)
[2017-12-04 17:44] LABS: CALCIUM 8.6 MG/DL (8.5-10.1)
[2017-12-04 17:45] LABS: BICARBONATE 22.9 MEQ/L (21.0-32.0)
[2017-12-04 17:48] LABS: CREATININE 0.46 MG/DL (0.50-1.00)
[2017-12-04] MEDS ORDERED: INSULIN DETEMIR 100 UNITS/ML VIAL SQ SCH (21:00)
[2017-12-05] VITALS: BP 95/54; PULSE 65; RESP 16; TEMP 99.3; O2SAT 99
[2017-12-05] MEDS: SODIUM CHLORIDE 0.9% FLUSH 10 ML FLUSH IVF PRN (02:33)
[2017-12-05] MEDS ORDERED: MEDIUM DOSE INSULIN NOVOLOG SUPPLEMENTAL SCALE SQ SCH (03:00)
[2017-12-05 06:20] LABS: CALCIUM 8.1 MG/DL (8.5-10.1)
[2017-12-05 06:21] LABS: BICARBONATE 26.6 MEQ/L (21.0-32.0)
[2017-12-05 06:38] LABS: CREATININE 0.46 MG/DL (0.50-1.00)
[2017-12-05 08:00] VITALS: BP 105/66; PULSE 76; RESP 20; TEMP 98.3; O2SAT 99
[2017-12-05] MEDS: MEDIUM DOSE INSULIN NOVOLOG SUPPLEMENTAL SCALE SQ SCH ×2 (08:47→12:17)
[2017-12-05 11:52] VITALS: BP 105/57; PULSE 69; RESP 20; TEMP 99; O2SAT 97
--- NOTE | 2017-12-05 12:40 | HHI.PR ---
Subjective Remarks Feeling much better, No leg cramps, sugars 92 middle of the night, she felt diaphoretic ate and felt better Objective Vitals Vital Signs Date Time Temp Pulse Resp B/P (MAP) Pulse Ox O2 Delivery O2 Flow Rate FiO2 12/05/17 11:52 99.0 69 20 105/57 (73) 97 12/05/17 08:00 98.3 76 20 105/66 (79) 99 12/05/17 00:00 99.3 65 16 95/54 (68) 99 12/04/17 20:00 98.1 64 16 106/67 (80) 95 12/04/17 16:00 97.2 63 16 121/86 (98) 95 12/04/17 14:27 80 18 113/67 (82) 12/04/17 14:27 80 12/04/17 13:00 82 20 107/57 (74) 96 Result Diagram: 12/03/17 1130 12/05/17 0505 Objective Remarks sitting up in bed in good spirits lungs cta heart rrr not tachy good bowel sound nontender no c/c/e ambulating in room A/P Problem List: (1) DKA, type 2 ICD Codes: E11.10 - Type 2 diabetes mellitus with ketoacidosis without coma Status: Resolved Plan: sugars electrolytes improved she is on levemit and medium sliding scale of novolog will discharge on levemir and decrease sliding scale to low she has appt evelina with her new PCP where they can work on fine tuneing her sugars Diabetic education has not seen her yet but she will be able to get diabetic education through her insurance Discharge Planning discharge today Tatiana Chawla MD Dec 05, 2017 12:40
[2017-12-05] MEDS ORDERED: NOVOLOGSS SQ (13:38)
[2017-12-05] MEDS ORDERED: LEVEMIR SQ (13:38)
[2017-12-05] MEDS ORDERED: PROT40TA PO (13:38)
[2017-12-05] MEDS ORDERED: POTASSIUM CHLORIDE 10 MEQ CONTROLLED RELEASE TAB PO ONE (14:00)
[2017-12-05] MEDS ORDERED: INSULIN ASPART SUPPLEMENTAL SCALE SQ SCH (17:00)
[2017-12-05] MEDS ORDERED: INSULIN DETEMIR 100 UNITS/ML VIAL SQ SCH ×2 (21:00)
== END 2017-12-05 14:07 | disposition home or self-care (01) | DRG 639 ==
LOC: PHED 10:52 → PHEDA 12:38 → PHICU 14:40 → PH3B 12-04 16:09
PROVIDERS: ADMIT Legal Medicine; ATTEND Legal Medicine
DX: E11.10 Type 2 diabetes mellitus with ketoacidosis without coma (principal); F17.210 Nicotine dependence, cigarettes, uncomplicated; M79.1 Myalgia; R12 Heartburn; Z79.4 Long term (current) use of insulin; Z23 Encounter for immunization
CPT/HCPCS: 80048; 80053; 81001; 82010; 82805; 82948; 83036; 83735; 84100; 84703; 85025; 90471; 90732; 96361; 96374; C9113; G0009; J1815; J1817; J2405; J3480; J7030; J7042